=== PATIENT | female | born 1990 | race Native Hawaiian/Other Pacific Islander ===

== ENCOUNTER 2017-02-15 12:47 | Emergency (ER) | payer OTHER ==
[2017-02-15 12:55] VITALS: BP 126/76; PULSE 123; RESP 18; TEMP 98; O2SAT 99
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
== END 2017-02-15 16:13 | disposition home or self-care (01) ==
LOC: H.ER 12:47
DX: S09.93XA Unspecified injury of face, initial encounter (principal); V13.4XXA Pedal cycle driver injured in collision with car, pick-up truck or van in traffic accident, initial encounter